=== PATIENT | male | born 2000 | race Caucasian/White ===

== ENCOUNTER 2023-03-16 19:55 | Emergency (ER) | payer OTHER ==
[~2023-03-16] VITALS: Ht 165.1 cm; Wt 54.5 kg
[2023-03-16 20:07] VITALS: BP 129/73; TEMP 98.5
[2023-03-16] MEDS ORDERED: DOXYCYCLINE 10100 MG PO (20:41)
[2023-03-16 20:47] VITALS: PULSE 9
== END 2023-03-16 20:50 | disposition home or self-care (01) ==
LOC: COL.ER 19:55
DX: N45.1 Epididymitis (principal); Z88.0 Allergy status to penicillin